=== PATIENT | male | born 1990 | race African-American/Black ===

== ENCOUNTER 2021-07-12 19:39 | Emergency (ER) | payer OTHER ==
[~2021-07-12] VITALS: Ht 172.7 cm; Wt 83.9 kg
[2021-07-12 20:23] VITALS: BP 127/84
--- NOTE | 2021-07-12 20:34 | ER.PDOC ---
General Chief Complaint: Extremities Stated Complaint: LEFT KNEE PAIN Time seen by MD: 20:27 Source: patient Exam Limitations: no limitations History of Present Illness Initial Comments This is a 31-year-old man who comes to the emergency department with right knee pain that started today after he tripped over a call at work. It is reminiscent of the pain he had when he injured his ACL. He has pain to the medial knee. Where: work Context: twist Severity: moderate Allergies: Coded Allergies: No Known Allergies (Unverified , 07/12/21) Past Medical History Medical History: no pertinent history Surgical History: knee Social History Alcohol Use: occassionally Drug Use: marijuana Review of Systems Constitutional: denies no symptoms reported, denies see HPI, denies chills, denies diaphoresis, denies fever, denies malaise, denies weakness, denies other EENTM: denies no symptoms reported, denies see HPI, denies eye pain, denies blurred vision, denies tearing, denies double vision, denies ear pain, denies ear discharge, denies nose pain, denies nose congestion, denies throat pain, denies throat swelling, denies mouth pain, denies mouth swelling, denies other Respiratory: denies no symptoms reported, denies see HPI, denies cough, denies orthopnea, denies shortness of breath, denies stridor, denies wheezing, denies other Cardiovascular: denies no symptoms reported, denies see HPI, denies chest pain, denies edema, denies palpitations, denies syncope, denies other Gastrointestinal: denies no symptoms reported, denies see HPI, denies abdominal pain, denies constipation, denies diarrhea, denies nausea, denies vomiting, denies other Genitourinary: denies no symptoms reported, denies see HPI, denies discharge, denies dysuria, denies frequency, denies hematuria, denies pain, denies other Musculoskeletal: denies no symptoms reported, denies see HPI, denies back pain, denies gout, denies joint pain, denies joint swelling, denies muscle pain, denies muscle stiffness, denies neck pain, denies other Skin: denies no symptoms reported, denies see HPI, denies change in color, denies change in hair/nails, denies dryness, denies lesions, denies lumps, denies rash, denies other Psychiatric/Neurological: denies no symptoms reported, denies see HPI, denies anxiety, denies depressed, denies emotional problems, denies headache, denies numbness, denies paresthesia, denies pre-existing deficit, denies seizure, denies tingling, denies tremors, denies weakness, denies other All Other Systems: Reviewed and Negative Physical Exam General Appearance: Alert, No Apparent Distress Foot: nml inspection, non-tender, nml color/temp, skin intact Ankle: nml inspection, non-tender, nml ROM, no joint swelling, skin intact Knee: nml inspection, tenderness (There is tenderness to the knee, it is stable to anterior/posterior drawer as well as varus/valgus stress.) Thigh/Hip: nml inspection Gait: normal Neuro/Vasc/Tendon: sensation nml, motor nml, no vascular compromise, tendon function nml Skin: warm/dry Head/ENT: nml inspection, pharynx nml Neck/Back: nml inspection, non-tender Abdomen: non-tender, pelvis stable Results/Orders Results/Orders Orders - STALIN VAZQUEZ MD Xr Knee Rt 2v (07/12/21 20:31) Vital Signs Date Time Temp Pulse Resp B/P (MAP) Pulse Ox O2 Delivery O2 Flow Rate FiO2 07/12/21 20:23 97.9 81 16 07/12/21 20:23 97.9 81 16 99 07/12/21 20:23 97.9 81 16 127/84 (98) 99 Room Air Progress Progress INDICATIONS:Knee pain FINDINGS: BONES:Normal. JOINTS:ACL repair. SOFT TISSUES:Normal. OTHER:No additional findings. CONCLUSION:ACL repair. No acute findings. Dictated by: Jorge A Clancy MD on 07/12/2021 at 09:21 PM ER DEPART Departure Time of Disposition: 21:36 Disposition: 01 HOME / SELF CARE / HOMELESS Impression: Primary Impression: Internal derangement of knee Condition: Stable Patient Instructions: Knee Pain Referrals: PCP,UNKNOWN (PCP) PRIMARY CARE PROVIDER Additional Instructions: Keep your knee elevated as much as possible. Place ice to your knee 4 times a day for 20 minutes each time. If your pain does not improve, you will need to see Dr. Espinoza, the orthopedic surgeon here in [place]. Duration or Time Spent with Pa: Unknown Problem Qualifiers Primary Impression: Internal derangement of knee Laterality: right Qualified Codes: M23.91 - Unspecified internal derangement of right knee STALIN VAZQUEZ MD Jul 12, 2021 20:34
--- NOTE | 2021-07-12 21:23 | DIREP ---
PROCEDURE:XRAY KNEE 2 VWS-RT COMPARISON:None. INDICATIONS:Knee pain FINDINGS: BONES:Normal. JOINTS:ACL repair. SOFT TISSUES:Normal. OTHER:No additional findings. CONCLUSION:ACL repair. No acute findings. Dictated by: Jorge A Clancy MD on 07/12/2021 at 09:21 PM
[2021-07-12 21:55] VITALS: BP 132/84
== END 2021-07-12 21:55 | disposition home or self-care (01) ==
LOC: ER 19:39
DX: M23.91 Unspecified internal derangement of right knee (principal); F12.90 Cannabis use, unspecified, uncomplicated
CPT/HCPCS: 29505; 73560; 99283